=== PATIENT | female | born 1940 | race Two or more races ===

== ENCOUNTER 2017-05-24 07:58 | Emergency (ER) | payer OTHER ==
[~2017-05-24] VITALS: Ht 160 cm; Wt 72.6 kg
--- NOTE | 2017-05-24 07:58 | NUR ---
CC HEADACHE AND CONFUSION SINCE BEGINNING OF THE YEAR. NAD NOTED. PT AAO X4, AMB WITH STEADY GAIT. RR EVEN AND UNLABORED. VSS. PENDING MD NASH.
[2017-05-24] MEDS ORDERED: GADOVERSETAMIDE 2.5 MMOL/5 ML VIAL IJ ONE (08:02)
[2017-05-24] MEDS ORDERED: TRAMADOL HCL 50 MG TABLET ONE (08:34)
[2017-05-24] MEDS ORDERED: ONDANSETRON 4 MG TAB.RAPDIS ONE (08:35)
[2017-05-24] MEDS: ONDANSETRON 4 MG TAB.RAPDIS PO ONE (08:38)
[2017-05-24] MEDS: TRAMADOL HCL 50 MG TABLET PO ONE (08:40)
--- NOTE | 2017-05-24 08:46 | NUR ---
TEXTED DR. FRYE FOR MRI APPROVAL.
[2017-05-24 08:51] LABS: BASOPHILS % (AUTO) 0.8 % (0.0-2.0); EOSINOPHILS # (AUTO) 0.3 /CMM (0.0-0.7); EOSINOPHILS % (AUTO) 5.4 % (0.0-6.0); HEMATOCRIT 40 % (33-45); HEMOGLOBIN 13.4 g/dL (11.5-14.8); LYMPHOCYTES % (AUTO) 32.1 % (20.0-44.0); MEAN CORPUSCULAR HEMOGLOBIN 30 PG (26.0-33.0); MEAN CORPUSCULAR HGB CONC 34 g/dl (31.0-36.0); MEAN CORPUSCULAR VOLUME 88 fL (82-100); MONOCYTES # (AUTO) 0.5 /CMM (0.1-1.30); MONOCYTES % (AUTO) 7.6 % (2.0-12.0); NEUTROPHILS # (AUTO) 3.3 /CMM (1.8-8.9); NEUTROPHILS % (AUTO) 54.1 % (43.0-81.0); PLATELET COUNT (AUTO) 245 /CMM (150-450); RDW COEFFICIENT OF VARIATION 14.3 (11.5-15.0); RED BLOOD CELL COUNT(AUTO) 4.53 MIL/uL (4.0-5.2); WHITE BLOOD COUNT (AUTO) 6.2 K/uL (4.3-11.0)
[2017-05-24 09:09] LABS: CALCIUM, SERUM 9.1 mg/dL (8.5-10.1); CARBON DIOXIDE 27 mmol/L (21-32); CHLORIDE 105 mmol/L (98-107); CREATININE 0.6 mg/dL (0.6-1.3); GLUCOSE 117 mg/dL (74-106); POTASSIUM 3.4 mmol/L (3.5-5.1); SODIUM SERUM 142 mmol/L (136-145); UREA NITROGEN, BLOOD 12 mg/dL (7-18)
[2017-05-24 09:14] LABS: ALANINE AMINOTRANSFERASE 27 U/L (12-78); ALBUMIN 3.4 g/dL (3.4-5.0); ALKALINE PHOSPHATASE 86 U/L (46-116); ASPARTATE AMINOTRANSFERASE 20 U/L (15-37); BILIRUBIN,TOTAL 0.6 mg/dL (0.2-1.0); TOTAL PROTEIN, SERUM 7.3 g/dL (6.4-8.2)
--- NOTE | 2017-05-24 09:15 | NUR ---
ON HOLD FOR NOW, DR. FRYE WILL LET US KNOW.
--- NOTE | 2017-05-24 09:55 | NUR ---
dr durand neurologist at bedside for eval.
--- NOTE | 2017-05-24 10:00 | NUR ---
pt signed consent for mri. checklist done
--- NOTE | 2017-05-24 11:06 | NUR ---
pt to mri at this time
--- NOTE | 2017-05-24 12:08 | NUR ---
pt back from mri
[2017-05-24 12:55] VITALS: BP 139/90
--- NOTE | 2017-05-24 13:00 | NUR ---
IV removed. Catheter intact and site benign. Pressure and 4x4 applied to site. No bleeding noted.Patient discharged to home in stable condition. Written and verbal after care instructions given. Patient verbalizes understanding of instruction.
== END 2017-05-24 13:06 | disposition home or self-care (01) ==
LOC: ER 08:01
DX: R51 Headache (principal); R20.9 Unspecified disturbances of skin sensation; E11.9 Type 2 diabetes mellitus without complications; I10 Essential (primary) hypertension; Z85.42 Personal history of malignant neoplasm of other parts of uterus; Z88.6 Allergy status to analgesic agent
CPT/HCPCS: 36415; 70553-TC; 80053-TC; 85025-TC; 85652-TC; A4606; A9579; Q0162; Z7610

== ENCOUNTER 2018-07-12 20:57 | Emergency (ER) | payer MEDICARE, MEDICAID ==
--- NOTE | 2018-07-12 21:00 | NUR ---
CALLED PT NAME X3. NO ONE RESPONDED AT THIS TIME. WILL F/U
--- NOTE | 2018-07-12 21:30 | NUR ---
CALLED PT NAME X3. NO ONE RESPONDED AT THIS TIME. WILL F/U
--- NOTE | 2018-07-12 22:59 | NUR ---
CALLED PT NAME X 3, NO ONE RESPONSE, PER ADMITTING STATES PT LEFT.
== END 2018-07-12 23:10 | disposition left against medical advice (07) ==
LOC: ER 21:01
DX: Z53.21 Procedure and treatment not carried out due to patient leaving prior to being seen by health care provider (principal)

== ENCOUNTER 2022-10-20 18:42 | Emergency (ER) | payer OTHER ==
[~2022-10-20] VITALS: Ht 160 cm; Wt 63.5 kg
[2022-10-20 18:59] VITALS: BP 157/106
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
--- NOTE | 2022-10-20 20:40 | NUR ---
Georgia huntley in ED - 10/20/22 at 2041 by DANIELE Patient discharged to home in stable condition. Written and verbal after care instructions given. Patient verbalizes understanding of instruction. pt ambulatory with a steady gait
--- NOTE | 2022-10-20 20:40 | NUR ---
Patient eloped from facility. ER MD DR. Saul notified.
== END 2022-10-20 20:55 | disposition left against medical advice (07) ==
LOC: ER 18:56
DX: G47.00 Insomnia, unspecified (principal); I10 Essential (primary) hypertension; E11.9 Type 2 diabetes mellitus without complications; Z88.8 Allergy status to other drugs, medicaments and biological substances

== ENCOUNTER 2022-11-10 19:45 | Emergency (ER) | payer MEDICARE, OTHER ==
[~2022-11-10] VITALS: Ht 160 cm; Wt 90.7 kg
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
--- NOTE | 2022-11-10 20:41 | NUR ---
BROUGHT TO CT DEPT.
[2022-11-10] MEDS ORDERED: IBUP-1957 PO (21:53)
--- NOTE | 2022-11-10 22:47 | NUR ---
Patient discharged to home in stable condition. Written and verbal after care instructions given. Patient verbalizes understanding of instruction.
--- NOTE | 2022-11-10 22:47 | NUR ---
NEEDS ATTENDED. ICE PACK PROVIDED
[2022-11-10 22:48] VITALS: BP 186/93
== END 2022-11-10 23:33 | disposition home or self-care (01) ==
LOC: ER 19:52
DX: S00.03XA Contusion of scalp, initial encounter (principal); I10 Essential (primary) hypertension; E11.9 Type 2 diabetes mellitus without complications; Z85.42 Personal history of malignant neoplasm of other parts of uterus; Z98.890 Other specified postprocedural states; Z88.6 Allergy status to analgesic agent; Z79.899 Other long term (current) drug therapy; W01.0XXA Fall on same level from slipping, tripping and stumbling without subsequent striking against object, initial encounter; Y93.89 Activity, other specified; Y92.811 Bus as the place of occurrence of the external cause; Y99.8 Other external cause status
CPT/HCPCS: 70450-TC; 72125-TC

== ENCOUNTER 2024-06-18 12:59 | Emergency (ER) | payer MEDICARE, OTHER ==
[~2024-06-18] VITALS: Ht 152.4 cm; Wt 90.7 kg
[~2024-06-18 12:59] MED LIST: IBUP-1957 PO
[2024-06-18 13:22] VITALS: BP 151/81; TEMP 98.8
[2024-06-18] MEDS: IBUPROFEN 600 MG TABLET PO ONE (15:00)
[2024-06-18] MEDS ORDERED: IBUPROFEN 600 MG TABLET ONE (15:03)
[2024-06-18 15:23] VITALS: O2SAT 98
== END 2024-06-18 15:20 | disposition home or self-care (01) ==
LOC: ER 12:59
DX: M79.671 Pain in right foot (principal); I10 Essential (primary) hypertension; E11.9 Type 2 diabetes mellitus without complications; M25.571 Pain in right ankle and joints of right foot; M25.561 Pain in right knee; Z98.890 Other specified postprocedural states; Z88.6 Allergy status to analgesic agent
CPT/HCPCS: 73564-TC; 73610-TC; 73630-TC